=== PATIENT | female | born 1990 | race African-American/Black ===

== ENCOUNTER 2020-07-18 21:12 | Emergency (ER) | payer OTHER ==
[2020-07-18 21:26] VITALS: BP 108/73; PULSE 104; TEMP 98; BMI 20.1
[2020-07-18] MEDS ORDERED: FOLIC ACID 1 MG TABLET (FP) PO ONE (22:14)
[2020-07-18] MEDS ORDERED: THIAMINE HCL 100 MG TABLET (FP) PO ONE (22:14)
[2020-07-18] MEDS ORDERED: MULTIVITAMINS (DAILY MVI) TABLET (FP) PO ONE (22:14)
[2020-07-18] MEDS ORDERED: MULTIVITAMINS (DAILY MVI) TABLET (FP) ONE (22:16)
[2020-07-18] MEDS ORDERED: FOLIC ACID 1 MG TABLET (FP) ONE (22:17)
[2020-07-18] MEDS ORDERED: THIAMINE HCL 100 MG TABLET (FP) ONE (22:17)
[2020-07-18 22:39] LABS: BASO % 0.4 % (0-2.0); EOS % 3.1 % (0-4.5); HEMATOCRIT 37.7 % (32.4-45.2); HEMOGLOBIN 12.4 GM/dL (10.7-15.3); LYMPH % 60.3 % (8-40); MCH 24.2 pg (25.7-33.7); MCHC 32.8 g/dl (32.0-36.0); MEAN CELL VOLUME 73.8 fl (80-96); MEAN PLT VOLUME 7.1 fl (7.5-11.1); MONO % 7.5 % (3.8-10.2); NEUT % 28.7 % (42.8-82.8); PLATELET COUNT 462 K/MM3 (134-434); RBC 5.11 M/mm3 (3.60-5.2); RDW 16.5 % (11.6-15.6); WHITE BLOOD COUNT 4.6 K/mm3 (4.0-10.0)
[2020-07-18 22:52] LABS: ALBUMIN 4.5 g/dl (3.4-5.0); BLOOD UREA NITROGEN 5.8 mg/dL (7-18)
[2020-07-18 22:55] LABS: CREATININE 0.7 mg/dL (0.55-1.3)
[2020-07-18 22:56] LABS: BILIRUBIN,TOTAL 0.3 mg/dL (0.2-1); TOT PROT 8.2 g/dl (6.4-8.2)
[2020-07-19 00:26] LABS: PLATELET ESTIMATE NORMAL
== END 2020-07-18 23:50 | disposition home or self-care (01) ==
LOC: JER 21:12
DX: M25.551 Pain in right hip (principal); M25.552 Pain in left hip; D70.9 Neutropenia, unspecified; M54.5 Low back pain
CPT/HCPCS: 36415; 72100-TC-FY; 73523-TC-FY; 80053; 83690; 84703; 85025; 99285-25

== ENCOUNTER 2022-02-27 04:22 | Day surgery (SDC) | payer OTHER ==
[2022-02-26 11:00] VITALS: BMI 22.8
[2022-02-27 11:04] VITALS: TEMP 97.8
[2022-02-27 11:32] VITALS: BP 108/75; PULSE 70; RESP 14
== END 2022-02-27 11:34 | disposition home or self-care (01) ==
LOC: JASU-ENDO 04:22
PROVIDERS: ATTEND Internal Medicine Gastroenterology
PROC: 0DB78ZX Excision of Stomach, Pylorus, Via Natural or Artificial Opening Endoscopic, Diagnostic (ICD-10-PCS; principal; 2022-02-27 10:45)
DX: K29.50 Unspecified chronic gastritis without bleeding (principal); K92.0 Hematemesis
CPT/HCPCS: 88305-TC; 88342-TC

== ENCOUNTER 2022-06-03 09:24 | Emergency (ER) | payer OTHER ==
[2022-06-03 09:33] VITALS: BP 118/83; PULSE 78; RESP 20; TEMP 98.1; BMI 21.9
[2022-06-03 11:49] LABS: BASO % 0.9 % (0-2.0); EOS % 8.1 % (0-4.5); HEMATOCRIT 34.8 % (32.4-45.2); HEMOGLOBIN 11.2 GM/dL (10.7-15.3); LYMPH % 26.6 % (8-40); MCH 22.9 pg (25.7-33.7); MCHC 32.3 g/dl (32.0-36.0); MEAN CELL VOLUME 70.9 fl (80-96); MEAN PLT VOLUME 7.5 fl (7.5-11.1); MONO % 6.9 % (3.8-10.2); NEUT % 57.5 % (42.8-82.8); PLATELET COUNT 419 10^3/uL (134-434); RBC 4.91 M/mm3 (3.60-5.2); RDW 17.8 % (11.6-15.6); WHITE BLOOD COUNT 4.7 K/mm3 (4.0-10.0)
[2022-06-03 12:01] LABS: CHLORIDE 104 mmol/L (98-107); SODIUM 138 mmol/L (136-145)
[2022-06-03 12:03] LABS: ALBUMIN 4.4 g/dl (3.4-5.0); CALCIUM 9.1 mg/dL (8.5-10.1)
[2022-06-03 12:04] LABS: ANION GAP 9 MMOL/L (8-16); CO2 25 mmol/L (21-32); GLUCOSE,RANDOM 113 mg/dL (74-106)
[2022-06-03 12:07] LABS: CREATININE 0.7 mg/dL (0.55-1.3); SGOT/AST 20 U/L (15-37); SGPT/ALT 17 U/L (13-61)
[2022-06-03 12:09] LABS: BILIRUBIN,TOTAL 0.8 mg/dL (0.2-1); TOT PROT 7.8 g/dl (6.4-8.2)
[2022-06-03 12:10] LABS: ALK PHOS 48 U/L (45-117)
[2022-06-03 12:11] LABS: BLOOD UREA NITROGEN 2.8 mg/dL (7-18)
== END 2022-06-03 16:07 | disposition home or self-care (01) ==
LOC: JERFT 09:24 → JER 09:24 → JERFT 16:07
DX: R51.9 Headache, unspecified (principal)
CPT/HCPCS: 36415; 70460-TC; 80053; 84703; 85025; 99285-25; Q9967